=== PATIENT | male | born 1950 | race Caucasian/White ===

== ENCOUNTER 2018-04-17 12:10 | Inpatient (IN) | payer MEDICARE ==
[2018-04-17] MEDS ORDERED: ASPIRIN PO ONE (12:31)
[2018-04-17 12:49] LABS: Basophils # (Auto) 0.1 K/mm3 (0.0-0.1); Basophils % (Auto) 0.7 % (0.0-1.8); Eosinophils # (Auto) 0.1 K/mm3 (0.0-0.4); Eosinophils % (Auto) 0.7 % (0.0-4.3); Hematocrit 45.3 % (35.5-45.6); Hemoglobin 15.4 gm/dl (11.8-15.2); Lymphocytes # (Auto) 1.7 K/mm3 (1.2-5.4); Mean Corpuscular HGB Conc 34 % (32-34); Mean Corpuscular Hemoglobin 32 pg (28-32); Mean Corpuscular Volume 94 fl (84-94); Monocytes # (Auto) 0.3 K/mm3 (0.0-0.8); Monocytes % (Auto) 3.5 % (0.0-7.3); Platelet Count 228 K/mm3 (140-440); Red Blood Count 4.83 M/mm3 (3.65-5.03); Red Cell Distribution Width 13.7 % (13.2-15.2)
[2018-04-17 13:02] LABS: BUN/Creatinine Ratio 15; Blood Urea Nitrogen 12 mg/dL (9-20); Calcium 8.7 mg/dL (8.4-10.2); Hemolysis Index 9
--- NOTE | 2018-04-17 13:16 | Cat Scan Report ---
CRANIAL CT SCAN: Dizziness. Serial contiguous axial images were obtained through the cranium. Intravenous contrast material was not administered. The ventricles are normal in size and appearance. There is no mass effect or midline shift. No areas of abnormally increased or decreased attenuation are seen. No mass lesion is seen. The mastoid air cells and visualized portions of the sinuses are normal. IMPRESSION: Cranial CT scan within normal limits.
[2018-04-17] MEDS ORDERED: SODIUM CHLORIDE FLUSH SYRINGE 10 ML IV PRN ×2 (14:26→20:14)
[2018-04-17] MEDS ORDERED: ZOFRAN IV PRN ×2 (14:26→20:14)
[2018-04-17] MEDS ORDERED: TYLENOL PO PRN ×2 (14:26→20:14)
[2018-04-17] MEDS ORDERED: PROVENTIL IH PRN (14:26)
--- NOTE | 2018-04-17 14:28 | Emergency Department Report ---
ED General Adult HPI - General Chief complaint: Dizziness Stated complaint: DIZZINESS Time Seen by Provider: 04/17/18 14:10 Source: patient Mode of arrival: Wheelchair Limitations: Language Barrier - History of Present Illness Initial comments: 68-year-old male with the acute onset of vertigo this morning at 11. 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 His vertigo is persistent. He denies any facial weakness numbness or paresthesias anywhere. He denies any motor change in his extremities. He did not feel like he was going to pass out. He denies headache. He has never experienced anything like this before. He does not go to the doctor very frequently. He is prescribed 81 mg of aspirin only by a family doctor. He was unaware of his hypertension and hyperglycemia. He has not smoked for 40 years. He denies headaches. Severity scale (0 -10): 0 - Related Data Allergies Allergy/AdvReac Type Severity Reaction Status Date / Time No Known Allergies Allergy Verified 04/17/18 12:27 ED Review of Systems ROS: Stated complaint: DIZZINESS Other details as noted in HPI Constitutional: denies: chills, fever Eyes: denies: eye pain, eye discharge, vision change ENT: denies: ear pain, throat pain Respiratory: denies: cough, shortness of breath, wheezing Cardiovascular: denies: chest pain, palpitations Endocrine: no symptoms reported Gastrointestinal: denies: abdominal pain, nausea, diarrhea Genitourinary: denies: urgency, dysuria Musculoskeletal: denies: back pain, joint swelling, arthralgia Skin: denies: rash, lesions Neurological: vertigo. denies: headache, weakness, numbness, paresthesias, confusion, abnormal gait Psychiatric: denies: anxiety, depression Hematological/Lymphatic: denies: easy bleeding, easy bruising ED Past Medical Hx - Past Medical History Previous Medical History?: No - Surgical History Past Surgical History?: No - Social History Smoking Status: Never Smoker Substance Use Type: None ED Physical Exam - General Limitations: Language Barrier General appearance: alert, in no apparent distress - Head Head exam: Present: atraumatic, normocephalic - Eye Eye exam: Present: normal appearance. Absent: scleral icterus - ENT ENT exam: Present: mucous membranes moist - Neck Neck exam: Present: normal inspection. Absent: tenderness, meningismus - Respiratory Respiratory exam: Present: normal lung sounds bilaterally. Absent: respiratory distress - Cardiovascular Cardiovascular Exam: Present: regular rate, normal rhythm. Absent: systolic murmur, diastolic murmur, rubs, gallop - GI/Abdominal GI/Abdominal exam: Present: soft, normal bowel sounds. Absent: distended, tenderness, guarding, rebound, rigid - Rectal Rectal exam: Present: deferred - Extremities Exam Extremities exam: Present: normal inspection - Back Exam Back exam: Present: normal inspection - Neurological Exam Neurological exam: Present: alert, oriented X3, CN II-XII intact, other ( cerebellar testing was normal plantars were downgoing, NIH stroke score was negative for all axes and 0 ). Absent: motor sensory deficit - Psychiatric Psychiatric exam: Present: normal affect, normal mood - Skin Skin exam: Present: warm, dry, intact, normal color. Absent: rash ED Course Vital Signs 04/17/18 04/17/18 12:27 13:44 Temperature 98 F Pulse Rate 73 66 Respiratory 16 16 Rate Blood Pressure 140/70 Blood Pressure 158/73 [Left] O2 Sat by Pulse 96 97 Oximetry - Reevaluation(s) Reevaluation #1: Patient was admitted by Dr. Roman for further workup and evaluation in stable condition. 04/17/18 15:03 ED Medical Decision Making - Lab Data Result diagrams: 04/17/18 12:38 04/17/18 12:38 Laboratory Results - last 24 hr 04/17/18 04/17/18 04/17/18 12:38 12:38 12:40 WBC 7.8 RBC 4.83 Hgb 15.4 H Hct 45.3 MCV 94 MCH 32 MCHC 34 RDW 13.7 Plt Count 228 Lymph % (Auto) 22.0 [place] % (Auto) 3.5 Eos % (Auto) 0.7 Baso % (Auto) 0.7 Lymph # 1.7 [place] # 0.3 Eos # 0.1 Baso # 0.1 Seg Neutrophils % 73.1 H Seg Neutrophils # 5.7 Sodium 137 Potassium 4.4 Chloride 100.7 Carbon Dioxide 26 Anion Gap 15 BUN 12 Creatinine 0.8 Estimated GFR > 60 BUN/Creatinine Ratio 15 Glucose 197 H POC Glucose 178 H Calcium 8.7 Troponin T < 0.010 04/17/18 13:37 WBC RBC Hgb Hct MCV MCH MCHC RDW Plt Count Lymph % (Auto) [place] % (Auto) Eos % (Auto) Baso % (Auto) Lymph # [place] # Eos # Baso # Seg Neutrophils % Seg Neutrophils # Sodium Potassium Chloride Carbon Dioxide Anion Gap BUN Creatinine Estimated GFR BUN/Creatinine Ratio Glucose POC Glucose 145 H Calcium Troponin T - EKG Data -: EKG Interpreted by Me EKG shows normal: sinus rhythm Rate: normal - EKG Data Interpretation: other (very slight J-point elevation in the inferior leads repeat EKG shows no progression. Looks like there is an intraventricular conduction abnormality only. T-wave inversion in V2 is nonspecific) - Radiology Data Radiology results: pending (chest x-ray is pending), report reviewed (CT head showed nothing acute) Critical care attestation.: If time is entered above; I have spent that time in minutes in the direct care of this critically ill patient, excluding procedure time. 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
[2018-04-17 15:32] LABS: Free T4 (Free Thyroxine) 1.38 ng/dL (0.76-1.46)
--- NOTE | 2018-04-17 20:08 | History and Physical Report ---
History of Present Illness Date of admission: 04/17/18 14:26 Chief complaint: He got dizzy and confused History of present illness: 68 YO Male with No PMH presents to ED for evaluation. Pt is confused and unable to provide detailed history, but patient son is at bedside and provide history. As per son, the patient experienced an acute onset of dizziness, and inability to speak. Pt son states that he thought the patient experienced vertigo. No reports of fever, chills, CP, Palpitations, loss of bowel/bladder continence, unintentional weight loss, night sweats, productive cough, trauma, falls. EMS notified, and patient transported to [facility] for further care and evaluation. Pt seen and evaluated in ED and found to have symptoms consistent with CVA. Past History Past Medical History: No medical history, other (reviewed) Past Surgical History: No surgical history, Other (reviewed) Social history: , lives with family. denies: smoking, alcohol abuse, prescription drug abuse Family history: no significant family history (reviewed) Medications and Allergies Allergies Allergy/AdvReac Type Severity Reaction Status Date / Time No Known Allergies Allergy Verified 04/17/18 12:27 Home Medications Medication Instructions Recorded Confirmed Last Taken Type Aspirin [Aspirin EC] 325 mg PO DAILY #30 tablet. 04/19/18 Unknown Rx AtorvaSTATin [Lipitor] 40 mg PO QHS #30 tablet 04/19/18 Unknown Rx Active Meds: Active Medications Acetaminophen (Tylenol) 650 mg PO Q4H PRN PRN Reason: Pain MILD(1-3)/Fever >100.5/[place] Albuterol (Proventil) 2.5 mg IH Q4HRT PRN PRN Reason: Shortness Of Breath Ondansetron HCl (Zofran) 4 mg IV Q8H PRN PRN Reason: Nausea And Vomiting Sodium Chloride (Sodium Chloride Flush Syringe 10 Ml) 10 ml IV BID [place] Sodium Chloride (Sodium Chloride Flush Syringe 10 Ml) 10 ml IV PRN PRN PRN Reason: LINE FLUSH Review of Systems Constitutional: no weight loss, no weight gain, no fever, no chills Ears, nose, mouth and throat: no ear pain, no ear discharge, no tinnitis, no decreased hearing, no nose pain Cardiovascular: no chest pain, no orthopnea, no palpitations, no rapid/ irregular heart beat, no edema, no syncope Respiratory: no cough, no cough with sputum, no excessive sputum, no hemoptysis Gastrointestinal: no nausea, no vomiting, no diarrhea, no constipation, no change in bowel habits, no coffee ground emesis Genitourinary Male: no dysuria, no hematuria, no flank pain, no discharge, no urinary frequency, no urinary hesitancy, no nocturia Rectal: no pain, no incontinence, no bleeding Musculoskeletal: no neck stiffness, no neck pain, no arm numbness/tingling Integumentary: no rash, no pruritis, no redness, no sores, no wounds Neurological: weakness, change in speech, confusion, no transient paralysis, no paralysis, no headaches, no migraines, no tic, no memory loss, no changes in smell/taste, no balance difficulties Psychiatric: no anxiety, no memory loss, no change in sleep habits, no sleep disturbances, no insomnia, no hypersomnia, no change in appetite, no change in libido Endocrine: no heat intolerance, no polyphagia, no excessive thirst, no polyuria , no nocturia, no excessive sweating Hematologic/Lymphatic: no easy bruising, no easy bleeding, no lymphadenopathy, no lymphedema Allergic/Immunologic: no urticaria, no allergic rhinitis, no wheezing Exam - Constitutional Vitals: Temp Pulse Resp BP Pulse Ox 98.5 F 66 18 169/82 96 04/17/18 19:46 04/17/18 19:46 04/17/18 19:46 04/17/18 19:46 04/17/18 19:46 General appearance: Present: mild distress, cachectic - EENT Eyes: Present: PERRL ENT: hearing intact, clear oral mucosa - Neck Neck: Present: supple, normal ROM - Respiratory Respiratory effort: normal Respiratory: bilateral: CTA - Cardiovascular Heart Sounds: Present: S1 & S2. Absent: rub, click - Extremities Extremities: pulses symmetrical, No edema Peripheral Pulses: within normal limits - Abdominal General gastrointestinal: Present: soft, non-tender, non-distended, normal bowel sounds Male genitourinary: Present: normal - Integumentary Integumentary: Present: clear, warm, dry - Musculoskeletal Musculoskeletal: gait normal, strength equal bilaterally - Psychiatric Psychiatric: appropriate mood/affect, intact judgment & insight - Neurologic Neurologic: CNII-XII intact, moves all extremities Results - Labs CBC & Chem 7: 04/17/18 12:38 04/17/18 12:38 Labs: Abnormal lab results 04/17/18 04/17/18 04/17/18 Range/Units 12:38 12:38 12:40 Hgb 15.4 H (11.8-15.2) gm/dl Seg Neutrophils % 73.1 H (40.0-70.0) % Glucose 197 H (75-100) mg/dL POC Glucose 178 H (70-105) 04/17/18 04/17/18 Range/Units 13:37 16:53 Hgb (11.8-15.2) gm/dl Seg Neutrophils % (40.0-70.0) % Glucose (75-100) mg/dL POC Glucose 145 H 108 H (70-105) Assessment and Plan - Patient Problems (1) CVA (cerebral vascular accident) Status: Acute Qualifiers: CVA mechanism: unspecified Qualified Code(s): I63.9 - Cerebral infarction, unspecified Plan to address problem: Stroke protocol: CT Head, MRI brain, MRA Brain, Echo, Carotid Doppler, EEG, Neuro checks, seizure precautions, PT/OT/ Speech therapy, anti platelet therapy (2) Hyperglycemia due to type 2 diabetes mellitus Status: Acute Qualifiers: Diabetes mellitus alf insulin use: without alf use Qualified Code(s): E11.65 - Type 2 diabetes mellitus with hyperglycemia Plan to address problem: ADA diet, insulin, accu check, monitor serum glucose, D50 for hypoglycemia and hold antihyperglycemic therapy (3) DVT prophylaxis Status: Acute
[2018-04-17] MEDS ORDERED: MILK OF MAGNESIA PO PRN (20:14)
[2018-04-17] MEDS ORDERED: REGLAN PO PRN (20:14)
[2018-04-17] MEDS ORDERED: DULCOLAX PR PRN (20:14)
[2018-04-17] MEDS ORDERED: PHENERGAN PR PRN (20:14)
--- NOTE | 2018-04-17 20:44 | XRay Report ---
FINAL REPORT EXAM: XR CHEST 1V AP HISTORY: hypertension TECHNIQUE: AP portable view of the chest. PRIORS: None. FINDINGS: The cardiomediastinal silhouette appears normal. The lungs are clear. The bones and soft tissues are unremarkable. IMPRESSION: No evidence of acute cardiopulmonary disease.
[2018-04-17] MEDS: SODIUM CHLORIDE FLUSH SYRINGE 10 ML IV SCH (22:15)
[2018-04-18 06:01] LABS: Chol/HDL Ratio 3.57 %
--- NOTE | 2018-04-18 10:07 | Magnetic Resonance Report ---
MRI OF THE BRAIN WITHOUT CONTRAST: HISTORY: Stroke PROCEDURE: Multiplanar, multisequence MR imaging of the brain without IV contrast was performed. FINDINGS: Compared to the CT head dated 04/17/18. There is a solitary tiny 3 mm focus of diffusion restriction in the medial left temporal lobe on the diffusion image 17. This appears to involve the posterior left hippocampus. No other areas of diffusion restriction are identified. Mild cortical volume loss and mild nonspecific chronic white matter changes are identified. No evidence for hemorrhage, mass or large chronic infarct. No extra-axial fluid collection. The midline structures are central. The basal cisterns are patent. Normal ventricular size. The orbital cavities and sella turcica demonstrate no abnormality. The visualized paranasal sinuses and mastoid air cells are well aerated. IMPRESSION: 3 mm focus of subacute ischemia in the left hippocampus as described. Volume loss. Chronic white matter changes.
--- NOTE | 2018-04-18 10:07 | Magnetic Resonance Report ---
MRA HEAD WITHOUT CONTRAST HISTORY: Stroke. [id number] imaging with MIP reformations of the [place] of [place] is submitted. The arteries appear widely patent and free of hemodynamically significant stenosis, aneurysm or dissection. Hypoplastic right A1 segment is noted. IMPRESSION: Normal variant MRA head. No large vessel occlusion or stenosis is identified.
[2018-04-18] MEDS: SODIUM CHLORIDE FLUSH SYRINGE 10 ML IV SCH ×2 (11:34→21:49)
--- NOTE | 2018-04-18 17:33 | Progress Note ---
Assessment and Plan Assessment and plan: --Dizziness; probably vasovagalFall precautions, check orthostatics, Physical therapy occupational therapy, possible rehabilitation versus home health --Near syncope; Advised extensive neuro workup in progress No new episodes of syncope, supportive care --Possible CVA; MRI 3 mm subacute infarct Continue aspirin and statin --Dyslipidemia; lipid lowering medications Low-cholesterol diet --DVT prophylaxis; Lovenox --Full CODE STATUS --DC planning. Case management; Home with home health versus subacute rehabilitation When medically stable Plan of care reviewed with the patient and case management History Interval history: Patient seen and examined medical records reviewed Admitted with near syncope and dizziness Patient still complains of dizziness Neuro workup is in progress Vital signs reviewed Hospitalist Physical - Constitutional Vitals: Temp Pulse Resp BP Pulse Ox 98.5 F 68 16 162/74 97 04/18/18 14:08 04/18/18 14:08 04/18/18 14:08 04/18/18 14:08 04/18/18 14:08 General appearance: Present: no acute distress, well-nourished - EENT Eyes: Present: PERRL, EOM intact - Neck Neck: Present: supple, normal ROM - Respiratory Respiratory effort: normal Respiratory: bilateral: diminished, negative: rales, rhonchi, wheezing - Cardiovascular Rhythm: regular Heart Sounds: Present: S1 & S2 - Extremities Extremities: no ischemia, No edema - Abdominal General gastrointestinal: soft, non-tender, non-distended, normal bowel sounds - Integumentary Integumentary: Present: clear, warm - Psychiatric Psychiatric: appropriate mood/affect, cooperative - Neurologic Neurologic: CNII-XII intact, moves all extremities Results - Labs CBC & Chem 7: 04/17/18 12:38 04/17/18 12:38 Labs: Laboratory Last Values WBC 7.8 K/mm3 (4.5-11.0) 04/17/18 12:38 RBC 4.83 M/mm3 (3.65-5.03) 04/17/18 12:38 Hgb 15.4 gm/dl (11.8-15.2) H 04/17/18 12:38 Hct 45.3 % (35.5-45.6) 04/17/18 12:38 MCV 94 fl (84-94) 04/17/18 12:38 MCH 32 pg (28-32) 04/17/18 12:38 MCHC 34 % (32-34) 04/17/18 12:38 RDW 13.7 % (13.2-15.2) 04/17/18 12:38 Plt Count 228 K/mm3 (140-440) 04/17/18 12:38 Lymph % (Auto) 22.0 % (13.4-35.0) 04/17/18 12:38 [place] % (Auto) 3.5 % (0.0-7.3) 04/17/18 12:38 Eos % (Auto) 0.7 % (0.0-4.3) 04/17/18 12:38 Baso % (Auto) 0.7 % (0.0-1.8) 04/17/18 12:38 Lymph # 1.7 K/mm3 (1.2-5.4) 04/17/18 12:38 [place] # 0.3 K/mm3 (0.0-0.8) 04/17/18 12:38 Eos # 0.1 K/mm3 (0.0-0.4) 04/17/18 12:38 Baso # 0.1 K/mm3 (0.0-0.1) 04/17/18 12:38 Seg Neutrophils % 73.1 % (40.0-70.0) H 04/17/18 12:38 Seg Neutrophils # 5.7 K/mm3 (1.8-7.7) 04/17/18 12:38 D-Dimer < 135.00 ng/mlDDU (0-234) 04/17/18 15:31 Sodium 137 mmol/L (137-145) 04/17/18 12:38 Potassium 4.4 mmol/L (3.6-5.0) 04/17/18 12:38 Chloride 100.7 mmol/L (98-107) 04/17/18 12:38 Carbon Dioxide 26 mmol/L (22-30) 04/17/18 12:38 Anion Gap 15 mmol/L 04/17/18 12:38 BUN 12 mg/dL (9-20) 04/17/18 12:38 Creatinine 0.8 mg/dL (0.8-1.5) 04/17/18 12:38 Estimated GFR > 60 ml/min 04/17/18 12:38 BUN/Creatinine Ratio 15 % 04/17/18 12:38 Glucose 197 mg/dL (75-100) H 04/17/18 12:38 POC Glucose 108 (70-105) H 04/17/18 16:53 Calcium 8.7 mg/dL (8.4-10.2) 04/17/18 12:38 Troponin T < 0.010 ng/mL (0.00-0.029) 04/17/18 21:08 Triglycerides 77 mg/dL (2-149) 04/18/18 04:49 Cholesterol 204 mg/dL (50-199) H 04/18/18 04:49 LDL Cholesterol Direct 140 mg/dL (50-130) H 04/18/18 04:49 HDL Cholesterol 57 mg/dL (40-59) 04/18/18 04:49 Cholesterol/HDL Ratio 3.57 % 04/18/18 04:49 TSH 0.916 mlU/mL (0.270-4.200) 04/17/18 14:49 Free T4 1.38 ng/dL (0.76-1.46) 04/17/18 14:49
[2018-04-19] MEDS: SODIUM CHLORIDE FLUSH SYRINGE 10 ML IV SCH (09:34)
--- NOTE | 2018-04-19 11:34 | Consultation ---
History of Present Illness Consult date: 04/19/18 History of present illness: Neuro OK to be discharged I went over the MRA and it is normal the MRI does show small area of ischemia left hippocampus the p[atient is better and can be discharged would use regullar aspirin 325 mg as opposed to low dose of 81 mg that he had been on previously other risk factors diabetes / HTN are being addressed spoke to daughter will follow up in office Medications and Allergies Allergies Allergy/AdvReac Type Severity Reaction Status Date / Time No Known Allergies Allergy Verified 04/17/18 12:27 Home Medications Medication Instructions Recorded Confirmed Last Taken Type Aspirin [Adult Low Dose Aspirin EC] 81 mg PO DAILY 04/18/18 04/18/18 04/16/18 History Active Meds: Active Medications Acetaminophen (Tylenol) 650 mg PO Q4H PRN PRN Reason: Pain MILD(1-3)/Fever >100.5/[place] Acetaminophen (Tylenol) 650 mg PO Q4H PRN PRN Reason: Pain, Mild (1-3) Albuterol (Proventil) 2.5 mg IH Q4HRT PRN PRN Reason: Shortness Of Breath Atorvastatin Calcium (Lipitor) 40 mg PO QHS [facility] Last Admin: 04/18/18 21:40 Dose: 40 mg Bisacodyl (Dulcolax) 10 mg RI QDAY PRN PRN Reason: Constipation Magnesium Hydroxide (Milk Of Magnesia) 30 ml PO Q4H PRN PRN Reason: Constipation Metoclopramide HCl (Reglan) 10 mg PO Q6H PRN PRN Reason: Nausea And Vomiting Ondansetron HCl (Zofran) 4 mg IV Q8H PRN PRN Reason: N/V unrelieved by Reglan Promethazine HCl (Phenergan) 25 mg RI Q6H PRN PRN Reason: Nausea And Vomiting Sodium Chloride (Sodium Chloride Flush Syringe 10 Ml) 10 ml IV BID [facility] Last Admin: 04/19/18 09:34 Dose: 10 ml Sodium Chloride (Sodium Chloride Flush Syringe 10 Ml) 10 ml IV PRN PRN PRN Reason: LINE FLUSH Physical Examination - Vital Signs Vital Signs: Vital Signs Temp Pulse Resp BP Pulse Ox 98 F 73 16 140/70 96 04/17/18 12:27 04/17/18 12:27 04/17/18 12:27 04/17/18 12:27 04/17/18 12:27 Results - Laboratory Findings CBC and BMP: 04/17/18 12:38 04/17/18 12:38 Abnormal Lab Findings: Abnormal Labs 04/17/18 04/17/18 04/17/18 12:38 12:38 12:40 Hgb 15.4 H Seg Neutrophils % 73.1 H Glucose 197 H POC Glucose 178 H Cholesterol LDL Cholesterol Direct 04/17/18 04/17/18 04/18/18 13:37 16:53 04:49 Hgb Seg Neutrophils % Glucose POC Glucose 145 H 108 H Cholesterol 204 H LDL Cholesterol Direct 140 H
[2018-04-19 15:10] VITALS: BP 155/74
--- NOTE | 2018-04-19 15:48 | Discharge Summary ---
Providers - Providers Date of Admission: 04/17/18 14:26 Date of discharge: 04/19/18 Attending physician: MATT JARRETT 04/17/18 20:15 Occupational Therapy Evaluate and Treat [CONS] Routine Comment: Reason For Exam: Neuro deficits Physical Therapy Evaluation and Treat [CONS] Routine Comment: Reason For Exam: Neuro deficits 04/18/18 17:42 Consult to Physician [CONS] Routine Comment: [phone]/[id number] Consulting Provider: THAO [place] Physician Instructions: CONSULT WAS CALLED TO /SALO Reason For Exam: dizziness, abnormal MRI/3 mm subacute infarct Primary care physician: OBSTETRICAL ANESTHESIOLOGIST Hospitalization Reason for admission: altered level of consciousness/dizziness Condition: Stable Pertinent studies: CT head without contrast; no acute abnormality MRI brain; 3 mm focus of subacute ischemia in the left hippocampus MRA brain; normal study Carotid Doppler; less than 50% stenosis Echocardiogram Chest x-ray; no acute abnormality Hospital course: 68-year-old male patient with no significant past medical history, not on any medications Was admitted with altered level of consciousness and dizziness Patient was initially evaluated and admitted to the hospital, symptomatically managed Had extensive neuro workup, Patient's workup is basically negative except for 3 mm subacute infarct on MRI History was not a candidate for TPA, Patient did not have any neurologic or physical deficits, received PT OT, evaluation, no need for therapy Evaluated by neurologist, cleared for discharge on aspirin and statin Patient also has elevated LDL, 40 mg of Lipitor was added Today patient is comfortable in no new complaints Vital signs stable Physical examination is unremarkable Physical be discharged home on aspirin and statin Advised to follow with primary care physician, follow with private neurologist as needed Plan of care discussed with the patient family computer project manager/ bilingual family member Answered all their questions Patient is hemodynamically and clinically stable at discharge Discharge diagnosis; --Acute CVA; not a candidate for TPA --Metabolic encephalopathy --Dizziness; resolved --Near syncope; --Dyslipidemia Disposition: DC-30 STILL A PATIENT Time spent for discharge: 33 min Core Measure Documentation - Palliative Care Palliative Care/ Comfort Measures: Not Applicable - Core Measures Any of the following diagnoses?: stroke - Stroke Discharge Requirements Statin for LDL = or >70 mg/dl on DC: Yes Anticoag for atrial fib/atrial flutter: Not Applicable (no h/o afib/aflutter) Antithrombotic for ischemic stroke: Yes Exam - Constitutional Vitals: Temp Pulse Resp BP Pulse Ox 98.5 F 74 18 155/74 97 04/19/18 15:01 04/19/18 15:01 04/19/18 15:01 04/19/18 15:01 04/19/18 15:01 General appearance: Present: no acute distress, well-nourished - EENT Eyes: Present: PERRL, EOM intact - Neck Neck: Present: supple, normal ROM - Respiratory Respiratory effort: normal Respiratory: bilateral: diminished, negative: rales, rhonchi, wheezing - Cardiovascular Rhythm: regular Heart Sounds: Present: S1 & S2 - Extremities Extremities: no ischemia, No edema - Abdominal General gastrointestinal: Present: soft, non-tender, non-distended, normal bowel sounds - Integumentary Integumentary: Present: clear, warm - Musculoskeletal Musculoskeletal: strength equal bilaterally - Psychiatric Psychiatric: appropriate mood/affect, cooperative - Neurologic Neurologic: CNII-XII intact, moves all extremities Plan Activity: advance as tolerated, fall precautions Diet: low cholesterol Additional Instructions: Fall precautions Follow up with: PRIMARY CARE, [Primary Care Provider] - 3-5 Days CORNELIUS WHITNEY MD [Staff Physician] - 7 Days Prescriptions: Aspirin [Aspirin EC] 325 mg PO DAILY #30 tablet. AtorvaSTATin [Lipitor] 40 mg PO QHS #30 tablet
--- NOTE | 2018-04-19 22:45 | Consultation ---
HISTORY OF PRESENT ILLNESS: This is a 68-year-old [place] male who enters [facility] with the onset of severe dizziness, vertigo. He denied any headache, passing out, or confusion. He had been taking 81 mg aspirin prior to admission. He has a known history of hypertension. The patient's blood pressure; however, on admission was 158/73. He is initially assessed. His hematocrit was 45. White blood count 7800. Creatinine 0.8, sodium 137, potassium 4.4. The patient had initial CT scan of the head, was unremarkable. Additional other risk factors for stroke were noted that his glucose is 197. PHYSICAL EXAMINATION: GENERAL: On my examination of the patient, he is alert, responsive. VITAL SIGNS: His current blood pressure is 148/72, temperature is 98.4, pulse rate 71, respirations 18, O2 sats are 99%. NEUROLOGIC: He is fully alert, talkative, but speaks [place], uses his daughter as a sas bi developer. Speech does not reveal any severe dysarthria, severe dysphagia; however, not knowing [place], I cannot comment on whether there is some degree of aphasia present. His memory seems intact. His visual francisco are full. Face is symmetrical. Motor and sensory testing, no nystagmus is noted. NECK: Supple. No tremors or asterixis are present. NEUROLOGIC: Cranial nerves are intact. Reflexes are all symmetrical. 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 Reviewed his MRI scan with the radiologist. In fact, there is a small area in the left mesial hippocampus, which is equivalent with a minor stroke; however, on reviewing his MRI of the brain. I do not see any evidence to suggest any abnormality or vessel occlusion or stenosis on the MRA. I feel safe to send the patient home. I did review over his records carefully and it did appear that he was taking a low-dose aspirin. I would increase his aspirin to 325 mg. I would also put him on a cholesterol lowering drugs such as low dose statin. Zocor would be a good choice 10 mg and increase his antihypertensive slightly as he did have a borderline elevation in systolic pressure as well as advised the daughter to other issues that would reduce the risk of stroke. PLAN: Follow the patient in the office. He may be discharge at this point. JOB# [id number] KRYSTA/DESTINI
== END 2018-04-19 16:55 | disposition home or self-care (01) | DRG 64 ==
LOC: ED 12:10 → 2B-ACE 14:26
PROVIDERS: ADMIT Internal Medicine; ATTEND Internal Medicine
DX: I63.9 Cerebral infarction, unspecified (principal); G93.41 Metabolic encephalopathy; I10 Essential (primary) hypertension; E11.65 Type 2 diabetes mellitus with hyperglycemia; E78.5 Hyperlipidemia, unspecified
CPT/HCPCS: 36415; 70450; 70544; 70551; 71045; 80048; 80061; 82962; 84439; 84443; 84484; 85025; 85379; 93005; 93010; 93306; 93880; 95819; A9270-GY; G8978-GP; G8979-GP